=== PATIENT | male | born 1980 | race Caucasian/White ===

== ENCOUNTER 2017-04-18 20:43 | Emergency (ER) | payer SELFPAY ==
[~2017-04-18] VITALS: Ht 182.9 cm; Wt 100.0 kg
[~2017-04-18 20:43] MED LIST: DICY1TAB26 PO; OMEP20CA5 PO; ZOFR4TAB3 SL
[2017-04-18 20:45] VITALS: BP 143/71; PULSE 91; RESP 15; TEMP 97.8; O2SAT 97
[2017-04-18] MEDS ORDERED: KETOROLAC TROMETHAMINE 60 MG/2 ML (IM) VIAL IM ONE (23:00)
[2017-04-18] MEDS ORDERED: oxyCODONE/ACETAMINOPHEN 5 MG/325 MG TAB PO ONE (23:00)
[2017-04-18] MEDS ORDERED: predniSONE 50 MG TAB PO ONE (23:00)
[2017-04-18] MEDS ORDERED: MEDR4PAK PO (23:05)
[2017-04-18] MEDS ORDERED: PERC5TAB12 PO (23:05)
--- NOTE | 2017-04-18 23:05 | PD ---
HPI Chief Complaint: Skin Problem Time Seen by Provider: 22:47 Travel History International Travel<30 days: No Contact w/Intl Traveler<30days: No Traveled to known affect area: No History of Present Illness HPI 37-year-old male here for evaluation of possible poison layne exposure/rash. Patient works in construction. He believes he was exposed yesterday. Yesterday evening he noticed vesicular lesions on his bilateral upper and lower extremities that became very pruritic. He tried pouring bleach on these lesions. He is also applied calamine lotion. He took Benadryl but was unable to sleep last night because of the discomfort which is moderate to severe. No fevers or chills. No intraoral lesions. 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 SKIN: Focused skin assessment warm/dry. I lateral upper and lower extremities with several patches of vesicular lesions with small area of surrounding erythematous base, no red streaks, no purulence, no induration, no fluctuance. HEAD: Atraumatic. Normocephalic. EYES: Pupils equal and round. No scleral icterus. No injection or drainage. ENT: No nasal bleeding or discharge. Mucous membranes pink and moist. No intraoral lesions. NECK: Trachea midline. No JVD. No nuchal rigidity. CARDIOVASCULAR: Regular rate and rhythm. RESPIRATORY: No accessory muscle use. NEUROLOGICAL: Awake and alert. No obvious cranial nerve deficits. Motor grossly within normal limits. Normal speech. PSYCHIATRIC: Appropriate mood and affect; insight and judgment normal. Data Data Last Documented VS Vital Signs Date Time Temp Pulse Resp B/P (MAP) Pulse Ox O2 Delivery O2 Flow Rate FiO2 04/18/17 20:45 97.8 91 15 143/71 (95) 97 Room Air Orders Orders Oxycodone-Acetamin 5-325 Mg (Percocet (04/18/17 23:00) Ketorolac Inj (Toradol Inj) (04/18/17 23:00) Prednisone (Deltasone) (04/18/17 23:00) MDM Medical Decision Making Medical Screen Exam Complete: Yes Emergency Medical Condition: Yes Medical Record Reviewed: Yes Differential Diagnosis Poison layne, chickenpox unlikely, cellulitis/impetigo unlikely Narrative Course This is a 37-year-old male with clusters of vesicular lesions on his bilateral upper and lower extremities that are pruritic. Lesions appear to be from poison layne exposure. The patient works in construction. There does not appear to be cellulitis or superinfection. Vital signs show heart rate 91, blood pressure 143/71, pulse ox 97% on room air, oral temp of 97.8F. Patient will be given Medrol Dosepak, IM Toradol, and narcotic pain medication. He was advised to immediately wash the clothes he was wearing while performing yard work yesterday in hot water. PMD follow-up this week. He was informed on when to return to the emergency department. He verbalizes understanding and agreement with plan. Diagnosis Primary Impression: Poison layne dermatitis Referrals: [facility] 3 days Additional Instructions: Follow-up with a primary care physician this week. Take medications as prescribed. Return to the emergency department for worsening symptoms or any other concerns. Scripts Oxycodone-Acetaminophen (Percocet) 5-325 mg Tab 1 TAB PO Q6H Y for PAIN, #12 TAB 0 Refills Prov: Julian King MD 04/18/17 Methylprednisolone Dosepak (Medrol Dosepak) 4 Mg Dspk 4 MG PO DIRECTED for 21 Days, #1 DSPK 0 Refills Per Pharmacist direction Prov: Julian King MD 04/18/17 Disposition: 01 DISCHARGE HOME Condition: Stable Julian King MD Apr 18, 2017 23:05
== END 2017-04-18 23:36 | disposition home or self-care (01) ==
LOC: NEPD 20:43
DX: L23.7 Allergic contact dermatitis due to plants, except food (principal); Z72.0 Tobacco use
CPT/HCPCS: 96372; 99284; J1885; J7512